=== PATIENT | male | born 1955 | race Caucasian/White ===

== ENCOUNTER 2017-11-10 10:31 | Emergency (ER) | payer BC, SELFPAY ==
[2017-11-10 10:33] VITALS: BP 190/94; PULSE 75; RESP 18; TEMP 35.9; O2SAT 98; BMI 26.4
--- NOTE | 2017-11-10 10:46 | CT_ITS ---
STUDY: CT BRAIN WITHOUT CONTRAST REASON FOR EXAM: Male, 62 years old. Headaches since yesterday. History of migraine headaches. RADIATION DOSAGE (If Supplied By Facility): CTDIvol = ( 44.99 ) mGy, DLP = ( 829.85 ) mGycm TECHNIQUE: Transaxial CT imaging of the brain was performed without administration of intravenous contrast material. Individualized dose optimization techniques were used for this CT. COMPARISON: None. FINDINGS: Normal soft tissue structures. Normal calvarium. Normal size ventricles and extra-axial spaces for the patient's age. Normal white matter tracts of the cerebral hemispheres. Normal basal ganglia and thalami. Normal brainstem. Normal cerebellum. There is no intracranial hemorrhage. There are no findings of an acute ischemic infarction. Partial opacification of the right maxillary sinus. Partial opacification of the ethmoid sinuses with nodular mucosal thickening of the anterior aspect of the left maxillary sinus. Mucosal thickening of the left sphenoid sinus. Mild mucosal thickening of the left frontal sinus. CT/Brain/Head without Contrast IMPRESSION: Sinusitis. Electronically Signed: Jose Carlos Escamilla MD at 12:14 EDT Tel [phone], Service support ,
--- NOTE | 2017-11-10 10:50 | ED.DCSUM_ITS ---
- ER Visit Summary Date of Service: 11/10/17 Chief Complaint: Headache History of Present Illness: The patient is a 62 M with rare migraines and hypertension. Patient states an ocular migraine yesterday. It improved in the afternoon he was able to go back to work. Today he has a headache in the bilateral temples down his neck with increased muscle tension. He had some slight dizziness this morning. He has had some minimal sinus congestion. No recent head trauma. Patient did take ibuprofen 4.5 hours ago and did take his blood pressure medicine just prior to arrival. Physical Examination: Vital signs significant for blood pressure of 190/94, otherwise unremarkable. Patient sitting upright in a well lit room. He is in no acute distress. Head neck examination was no sign. No significant sinus tenderness. TMs are clear bilaterally. He has no midline cervical tenderness but does have muscular tenderness in the bilateral trapezius muscles. Heart is regular rate and rhythm. Lung sounds are clear. Abdomen soft nontender. Neuro exam is normal. Test Results: CT head reveals evidence of sinusitis. Emergency Department Course and Treatment: Patient was treated Toradol, Reglan, Benadryl, and IV fluids. On repeat evaluation headache is nearly completely resolved. Patient complained of pain mostly in the muscles and more tension- like, as compared to a sinus induced headache. We will not treat with antibiotics at this time. Patient has a follow-up with him as scheduled with his primary care physician tomorrow. Treatment Plan: [] Disposition: Discharge Impression: Migraine, improved This note was generated with [employer] dictation software. It may contain incorrect words, spelling, and punctuation that were not noted in review of the chart prior to signing ED Disposition - Plan for ED Patient: Chief Complaint: Headache Referrals: Rachel Hannah DO [Primary Care Provider] -
[2017-11-10] MEDS: DiphenhydrAMINE 50 MG/ML Syringe 25 MG IV (11:04)
[2017-11-10] MEDS: Ketorolac 30 MG/ML Syringe IV (11:04)
[2017-11-10] MEDS: Metoclopramide 10 MG/2 ML Vial IV (11:04)
[2017-11-10] MEDS: 0.9% Normal Saline 1,000 ML 999 ML IV (11:10)
[2017-11-10 13:21] VITALS: BP 180/94; PULSE 66; RESP 16; O2SAT 97
--- NOTE | 2017-11-10 13:43 | ED.DEP ---
ED Disposition - Plan for ED Patient: Disposition: Home or Assisted Living Chief Complaint: Headache Instructions: ED Headache Migraine Referrals: Rachel Hannah DO [Primary Care Provider] - Keep Dutch appointment
[2017-11-10 14:04] VITALS: RESP 16
--- NOTE | 2017-11-10 14:04 | ED.RN ---
REVIEWED D/C INSTRUCTIONS, FOLLOW UP CARE, AND S/S THAT WOULD WARRANT A RETURN TO THE ED WITH PT. PT VERBALIZED AN UNDERSTANDING AND DENIES FURTHER QUESTIONS FOR THIS RN. PT SKIN P/W/D, RESP EVEN AND UNLABORED, PT A&O X 3, NO DISTRESS NOTED. PT AMBULATED OUT OF ED, GAIT STEADY.
== END 2017-11-10 14:06 | disposition home or self-care (01) ==
PROVIDERS: Emergency Provider Emergency Medicine; Family Provider Internal Medicine; PCP Internal Medicine
DX: G43.909 Migraine, unspecified, not intractable, without status migrainosus (principal); I10 Essential (primary) hypertension
CPT/HCPCS: 70450; 96361; 96374; 96375; 99283; J7030; J7050; A4216

== ENCOUNTER 2017-12-06 16:00 | Outpatient (RCR) | payer BC, SELFPAY ==
--- NOTE | 2017-11-23 12:54 | HP.PTEVAL ---
Patient's Visit Information SNOW ADORNO is a 62 year old M referred to Physical Therapy by Rachel Hannah with a diagnosis of muscular spasm, cervical pain. Date of Evaluation: 11/24/17 Physical Therapist: Jagdish Tobin - Visit Plan Frequency: 1-2x /Week Duration: 4 Weeks Plan: Promote increased range of motion and decreased pain through the use of modalities and dry needling. Add in thoracic extension, mid trap retraction, postural edcuation at work for ergonomics. - Subjective Subjective: Pt reports to physical therapy with muscle spasms and cervical pain. pt reports that cervical pain has been persistant for a couple months but has progressed within the last few weeks to a point where pt is experiencing headaches. pt suffered a headache which sent them to the ER. The ER physician said the pt's headaches were caused by tight muscles. pt performs stretches at home in an attempt to reduce symptoms. pt has described symptoms as pain in the upper trap. pt reports symptoms increase with over head movment and lifting heave objects. pt enjoys fitness and listing, pain has limited their ability to participate as desired. pt hopes to be able to return to lifting as prior to injury. - Pain Neck Pain Intensity (Out of 10): 6 Pain Intensity Range: 6, 10 - Objective POSTURE: mild forward head posture. PALPATION: pain upon palpation of the upper trap and the right levator scapule. NEURO: normal sensation. pt denies any numbness or tingling. ROM: Cervical: flexion - 0-50, extension - 0-40, lateral rotation R - 0-45, lateral rotation L - 0-40; UE: WFL. Decreased thoracic rotation and ext, mild increase in syptoms. MMT: Cervical: 5/5; UE: 5/5 - Special Tests C/S Radiculapathy - Left Spurlings: Negative C/S Radiculapathy - Right Spurlings: Negative - Goals Goal 1:: Pt to report 0/10 cervical pain at rest. Goal Time Frame: 2-4 Weeks Goal 2:: Pt to have improved cervical ROM by 25% in all ranges. Goal Time Frame: 2-4 Weeks Goal 3:: pt able to return to gym pain free Goal Time Frame: 2-4 Weeks Goal 4:: Pt. to complete all job activities without increase in symptoms. Goal Time Frame: 4-6 Weeks - Rehabilitation Potential Physical Therapy Diagnosis: Pt presents with symptoms associated with muscle spasm and cervical pain. pt's symptoms include diminished cervical range of motion, cervical pain with activity, and headaches, limiting pt's ability to participate in desired daily activities. pt would benefit from physical therapy to promot muscle relaxation and pain releif. Rehabilitation Potential: Excellent - Anticipated Interventions Patient/Client Instruction: Educate patient on: Condition, Plan of Care, Risk Factors, Benefits of Fitness Program For the Purpose of:: To decrease pain, To increase ROM, To improve muscle performance and motor function, To increase tolerance to activity/condition/position, To improve health of tissue, To foster healthy habits, To improve decision making, To facilitate caregiver knowledge, To improve self management, To prevent re-injury, To improve ability to perform tasks related to life management Therapeutic Exercise to Include: Strength training, Power training, Body mechanics, Postural training, Flexibilty training, Passive ROM, Active ROM For the Purpose of:: To decrease pain, To increase ROM, To improve muscle performance and motor function, To improve ability to perform ADL's, To improve health of tissue, To decrease soft tissue restriction, To increase flexibility/ROM Manual Therapy Techniques to Include: Trigger point massage, Massage, Mobilization, Manipulation, Passive ROM, Functional dry needling, Soft tissue mobilization For the Purpose of:: To decrease pain, To increase ROM, To decrease soft tissue restriction, To increase flexibility/ROM Cryotherapy (ice pack, ice massage): Yes Thermo therapy (hot pack): Yes Ultrasound (thermal/non thermal): Yes For the Purpose of:: To decrease pain, To increase ROM, To increase tolerance to activity/condition/position Thank you for the opportunity to evaluate your patient. For Medicare and Medicare HMO plans, please review the plan of care and approve it. It will need to be FAXED BACK to us at [phone] for Medicare purposes. Please let me know if there are questions or concerns regarding this plan of care. Physician Signature: Date:
--- NOTE | 2018-06-02 09:18 | HP.PTDCSUM ---
HP - PT D/C Summary It has been my pleasure to treat SNOW ADORNO under orders from Rachel Hannah DO, for the diagnosis of muscular spasm, cervical pain for a total of 6 visit(s). Discharge Date: 12/06/17 Please see the following information for a summary of their discharge status. - Subjective Subjective: Pt. reports I am doing great, I don't have any more pain. Pt. reports being HEP compliant and is 100% better overall. - Pain Neck Pain Intensity (Out of 10): 0 - Overall Improvement % Improvement: 100 - Objective Objective/Function: Pt. is no longer having any pain. He is pleased and is back to all recreational lifting without issues. Pt. will be DC from PT to HEP at this point in time. - Goals Goal 1:: Pt to report 0/10 cervical pain at rest. Goal Progress: Goal Met Goal 2:: Pt to have improved cervical ROM by 25% in all ranges. Goal Progress: Goal Met Goal 3:: pt able to return to gym pain free Goal Progress: Goal Met Goal 4:: Pt. to complete all job activities without increase in symptoms. - Plan Plan: DC to HEP at this point in time. - D/C Information Discharge Comments: Pt. was treated with postural strengthening, manual PT and DN. Pt. has met all of his goals and is no longer having pain. Pt. will be DC to HEP with focus on postural control and postural strengthening. If there are questions or concerns regarding this patient's physical therapy, please feel free to call me at [phone]. Thank you for the referral of this patient. Sincerely, Jagdish Tobin DPT
== END 2017-12-06 19:00 | disposition home or self-care (01) ==
LOC: PT 16:00
PROVIDERS: Family Provider Internal Medicine; PCP Internal Medicine; Visit Provider Internal Medicine
DX: M54.2 Cervicalgia (principal); M62.838 Other muscle spasm
CPT/HCPCS: 97110; 97140; 97161

== ENCOUNTER 2019-11-16 16:07 | Emergency (ER) | payer BC, SELFPAY ==
[2019-11-16 16:08] VITALS: BP 184/114; PULSE 94; RESP 17; TEMP 36.6; O2SAT 98; BMI 25.2
--- NOTE | 2019-11-16 16:37 | ED.DCSUM_ITS ---
History of Present Illness Chief Complaint: Lower Extremity Injury Informant: Patient Occurred: Today Mechanism/Context: Trip Onset: Today Context: Sudden Onset Quality of Pain: Aching Associated Symptoms: Negative for: Parasthesia, Weakness Narrative: Patient is a 64-year-old male with history of hypertension presenting with left ankle injury. Patient was in his basement when he tripped over a box. This caused him to twist his ankle and immediately had pain over the medial aspect of his ankle as well as swelling. Is not been able to walk on it since. This happened about an hour prior to arrival. He denies any prior injuries or issues with the ankle. He denies associated numbness or tingling. He is not on any blood thinners. No other complaints at this time. Past Medical History - Allergies and Home Meds Allergies/Adverse Reactions: Allergies clarithromycin [From Biaxin] Adverse Reaction (Verified 11/16/19 16:08) Nausea Primary Care Physician: Teri Taveras DO [STAFF PHYSICIAN] - Past Medical History: - - Hypertension Surgical History: noncontributory Lives: Spouse/ Significant Other Smoking Status: Never smoker Review of Systems General: Denies: Chills, Fever, Sweats Eyes: Denies: Visual changes - bilaterally, Diplopia ENT: Denies: Rhinorrhea, Sore throat Cardiovascular: Denies: Chest pain, Palpitations Respiratory: Denies: Dyspnea, Cough, Dyspnea on exertion Gastrointestinal: Denies: Abdominal pain, Nausea, Vomiting, Diarrhea, Melena, Hematochezia Genitourinary: Denies: Dysuria, Hematuria, Frequency Musculoskeletal: Reports: Swelling, Extremity Pain - Left ankle. Denies: Back pain Skin: Denies: Rash, Wounds Neurological: Denies: Headache, Weakness, Numbness Physical Exam Vital Signs/Narrative: Vital Signs Temp Pulse Resp BP Pulse Ox 11/16/19 16:08 97.9 F 94 17 184/114 H 98 Inital Vital Signs reviewed: Yes - Extremity Exam Left Knee: Negative for: Contusion, Deformity, Limited ROM Left Tib Fib: - - No Tenderness of the fibular head. Negative for: Contusion, Deformity, Limited ROM Left Ankle: Deformity, Edema, Limited ROM, - - Swelling with maximal tenderness over the medial malleolus. Achilles tendon appears to be intact.. Negative for: Contusion Left Toe: Negative for: Deformity, Edema, Hematoma, Limited ROM - No tenderness of the base of the fifth metatarsal General: Well nourished, Well developed Head: Normocephalic, Atraumatic Eyes: Perrl, EOMI ENT: No Trauma, Moist Mucous Membranes Neck: Nontender, Full ROM Cardiovascular: Regular rate, Regular rhythm, No murmurs Respiratory: No distress, CTA bilaterally, Chest nontender Abdomen: Soft, Nontender, Nondistended Skin: Normal color, No rash Neurological: Alert, Oriented x3, Cranial nerves II-XII grossly intact, Normal Strength, Normal Sensation Psychological: Normal affect Diagnostic/Tx/Re-eval Clinical Impression(s) from Imaging Studies Ankle X-Ray 11/16/19 16:45 IMPRESSION: Acute displaced fractures of the distal tibial and fibula. Electronically Signed: Alexis Cueva MD at 17:08 EDT , Service support , - Medical Decision Making Patient is evaluated for left ankle pain after a mechanical injury, tripping over a box. He has deformity. He is neuro vastly intact. X-ray interpreted by myself is consistent with tri-mal equivalent. Case is discussed with orthopedics on-call who recommends splinting and outpatient follow-up the patient will tolerate. Patient initially declined pain medication in the ER. Patient is then given IV fentanyl and Versed while the splint is placed. Patient is relaxed but oriented throughout. He is given oral Percocet prior to discharge. Patient is neurovascular intact after splint placement. Patient is given crutches per his request. Patient is counseled on signs and symptoms requiring return to the emergency room. Patient verbalizes agreement and understand this plan. Patient discharged home in stable and improved condition. Procedures - Lower Extremity Splints Lower Extremity Splint: Orthoglass, Stirrup - With posterior component Splint Fabrication: Fabricated Location: Left ED Disposition - Plan for ED Patient: Disposition: Home or Assisted Living Diagnosis: Closed fracture of distal end of left fibula and tibia Instructions: ED Ankle Fracture Prescriptions: Ibuprofen [Motrin] 600 mg PO Q6H PRN PRN #20 tab PRN Reason: Pain Score 1-10/10 Prescription Printed Oxycodone HCl/Acetaminophen [Percocet 5/325] 1 tab PO Q6H PRN PRN 3 Days #12 tab PRN Reason: Pain Prescription Printed Referrals: Teri Taveras DO [STAFF PHYSICIAN] - Additional Instructions: Do not put weight on your ankle. Call orthopedist on Tuesday to schedule follow- up appointments in the next few days. Alternate ibuprofen as well as Percocet for pain control. Return to emergency room with worsening pain or tingling. Do not get your splint wet.
--- NOTE | 2019-11-16 16:45 | RAD_ITS ---
STUDY: X-RAY - LEFT ANKLE REASON FOR EXAM: Male, 64 years old. left ankle pain after fall TECHNIQUE: 3 view(s) of the ankle. COMPARISON: None. FINDINGS: There is a transversely oriented fracture through the distal tibial plafond with mild lateral displacement of the proximal fracture fragment. . There is an obliquely oriented fracture through the distal third of the fibular shaft with mild separation of fracture fragments Normal medial and lateral malleoli. Normal tibiotalar articulation and ankle mortise. Normal visualized talus and calcaneus. The visualized subtalar, talonavicular, calcaneocuboid and tarsal articulations are normal. Bimalleolar soft tissue swelling is noted. RAD/Ankle min 3 Views IMPRESSION: Acute displaced fractures of the distal tibial and fibula. Electronically Signed: Alexis Cueva MD at 17:08 EDT , Service support ,
[2019-11-16] MEDS: fentaNYL 100 MCG/2 ML Ampul 50 MCG IV (18:53)
[2019-11-16] MEDS: Midazolam 5 MG/ML Syringe IV (18:53)
[2019-11-16 18:54] VITALS: BP 166/100; PULSE 85; RESP 20; O2SAT 98
[2019-11-16] MEDS: oxyCODONE 5 MG Tablet PO (19:34)
[2019-11-16 19:36] VITALS: BP 151/96; PULSE 84; RESP 16; O2SAT 96
--- NOTE | 2019-11-16 19:50 | ED.RN ---
IV out and wheelchair at al
== END 2019-11-16 19:51 | disposition home or self-care (01) ==
PROVIDERS: Emergency Provider Emergency Medicine; PCP Internal Medicine
DX: S82.402A Unspecified fracture of shaft of left fibula, initial encounter for closed fracture (principal); S82.202A Unspecified fracture of shaft of left tibia, initial encounter for closed fracture; W01.0XXA Fall on same level from slipping, tripping and stumbling without subsequent striking against object, initial encounter
CPT/HCPCS: 29515; 73610; 96374; 96375; 99285; J7030; A4216

== ENCOUNTER → 2019-11-20 15:05 | Outpatient (CLI) | payer BC, SELFPAY ==
[2019-11-16 16:08] VITALS: BMI 25.2
--- NOTE | 2019-11-20 15:08 | CT_ITS ---
STUDY: CT LEFT ANKLE WITHOUT CONTRAST REASON FOR EXAM: Evaluate displaced trimalleolar fracture from left ankle injury 11/16/2019. TECHNIQUE: Thin section transaxial imaging of the ankle was obtained, with sagittal and coronal reconstructed images. Individualized dose optimization techniques were used for this CT. COMPARISON: Radiographs 11/16/2019. FINDINGS: There is an obliquely oriented fracture of the distal fibular diaphysis above the level of the tibiotalar articulation with posterior displacement of the distal fragment by 0.28 cm (sagittal reconstructions 34-38). There is a fracture of the medial malleolus distracted 0.3 cm (coronal reconstructions 40-45). There is a posterior malleolar fracture displaced cephalad approximately 0.24 cm (sagittal reconstructions 22-30) with comminution (axial image 45). There is an osteochondral lesion of the medial talar dome (axial image 47; coronal reconstructions 43-45) measuring approximately 1.0 x 0.7 cm (AP x transverse). There is a small plantar calcaneal enthesophyte (sagittal reconstruction 27). Otherwise, unremarkable talus, calcaneus, navicular and cuboid tarsal bones. Normal subtalar, talonavicular and calcaneocuboid articulations. Normal navicular-cuneiform, cuneiform tarsal bones and intercuneiform articulations. Normal tarsometatarsal articulations and visualized metatarsi. There is soft tissue swelling. There is vascular calcification. CT/Extremity Lower without Contra IMPRESSION: Trimalleolar fracture. Osteochondral lesion of the medial talar dome. Electronically Signed: Cisco De Jesus MD at 9:58 EDT Tel , Service support ,
== END ==
PROVIDERS: PCP Internal Medicine; Referring Provider Podiatrist Foot & Ankle Surgery; Visit Provider Podiatrist Foot & Ankle Surgery
DX: S82.852A Displaced trimalleolar fracture of left lower leg, initial encounter for closed fracture (principal)
CPT/HCPCS: 73700

== ENCOUNTER 2019-11-29 09:31 | Day surgery (SDC) | payer BC, SELFPAY ==
--- NOTE | 2019-11-22 09:00 | EKG12_ITS ---
Test Reason : PRE OP Blood Pressure : / mmHG Vent. Rate : 078 BPM Atrial Rate : 078 BPM P-R Int : 154 ms QRS Dur : 082 ms QT Int : 376 ms P-R-T Axes : 047 056 057 degrees QTc Int : 428 ms Normal sinus rhythm Normal ECG No previous ECGs available Confirmed by DEBBY STERN, CLARENCE ([id number]), desk editor LOKESH ROGERS ([id number]) on 11/23/2019 9:33:11 AM Referred By: Zach Rogers Confirmed By:CLARENCE GUARDADO MD
--- NOTE | 2019-11-22 09:30 | RAD_ITS ---
STUDY: X-RAY CHEST REASON FOR EXAM: Male, 64 years old. trimalleolar fx ankle, pre op, no chest complaints TECHNIQUE: PA and lateral views of the chest. COMPARISON: None. FINDINGS: The lungs are clear and expanded. There is no demonstrated pleural abnormality. Normal size heart. Normal mediastinum and christian. Normal visualized pulmonary arteries. Normal visualized aortic arch and descending thoracic aorta. Normal visualized thoracic spine. Normal visualized ribs, clavicles, and shoulders. There is no demonstrated abnormality of the visualized soft tissue structures of the upper abdomen. RAD/Chest PA and Lateral IMPRESSION: Normal x-ray examination of the chest. Electronically Signed: Ravinder Garcia MD at 23:25 EDT , Service support ,
[2019-11-22 09:43] LABS: Hematocrit 41.3 % (40-54); Hemoglobin 13.8 g/dL (13.0-16.5); Mean Corp Hgb Conc 33.4 g/dL (32-36); Mean Corpuscular Hgb 31.9 pg (27.0-32.0); Mean Corpuscular Volume 95.6 fL (80-94); Mean Platelet Vol. 10.4 fl (6.2-12.0); Platelet Count 265 K/mm3 (150-450); RBC Distribution Width CV 11.9 % (11.6-14.6); RBC Distribution Width SD 41.2 fl (35.1-43.9); Red Blood Count 4.32 M/mm3 (4.6-6.2); White Blood Count 6.5 K/mm3 (4.4-11.0)
[2019-11-22 09:53] LABS: Partial Thromboplast Time 28.8 Seconds (24.1-36.2); Prothrombin Time (Protime)PT. 12.5 SECONDS (11.7-14.9)
[2019-11-22 10:12] LABS: Hemoglobin A1c 5.3 % (3.8-5.6)
[2019-11-22 10:18] LABS: Anion Gap 5 (5-15); BUN 20 mg/dL (7-18); BUN/Creat Ratio 19.2 RATIO (10-20); Calcium,Total 9.2 mg/dL (8.5-10.1); Chloride 107 mmol/L (98-107); Creatinine, Serum 1.04 mg/dL (0.70-1.30); EST Glomerular Filtration Rate 77 mL/min (>60); Est Glom Filt Rate - Afr Amer 93 mL/min (>60); Glucose 114 mg/dL (74-106); Sodium Level 139 mmol/L (136-145)
[2019-11-29] VITALS (7 sets, daily range): BP systolic 136–153; BP diastolic 78–95; PULSE 67–84; RESP 14–16; TEMP 36.3–37.2; O2SAT 94–100; BMI 26.4
[2019-11-29] MEDS: Lactated Ringers 1,000 ML 100 ML IV ×2 (10:12→16:51)
[2019-11-29] MEDS: Cefazolin 2 GM in 0.9% Normal Saline 100 ML IV (12:20)
--- NOTE | 2019-11-29 13:20 | RAD_ITS ---
STUDY: X-RAY - LEFT ANKLE REASON FOR EXAM: Male, 64 years old. ORIF of trimalleolar left ankle fracture. -- -- -- fluoro time - 347.6 seconds -- dose 9.18mgy TECHNIQUE: 17 fluoroscopic view(s) of the ankle. 347.6 seconds of fluoroscopy time. COMPARISON: Prior right ankle radiographs of 11/16/2019 FINDINGS: At the completion of the intraoperative procedure, the distal fibular fracture is realignment in normal anatomic alignment with a lateral side compression plate and one in the dependent lag screw. The medial malleolar fracture is repaired to anatomic alignment with 2 malleolar screws. There is fixation of the distal tibiofibular synchondrosis. The posterior malleolar fracture is anatomically aligned with inner osseous stabilization from posterior to anterior tibia. Normal ankle alignment. Normal postoperative soft tissue changes. RAD/Ankle min 3 Views IMPRESSION: Anatomic alignment and stabilization of the trimalleolar fracture of the ankle with hardware as described above. No untoward bone, joint or hardware findings. Electronically Signed: Briana Ren MD at 21:56 EDT , Service support ,
--- NOTE | 2019-11-29 16:19 | DCINST_ITS ---
Discharge Diet: No Restrictions Discharge Activity: May Not Drive, May Not Shower, Use Walker, Use Crutches Weight Bearing Status: No weight bearing Keep extremity elevated above heart level: Left Leg Additional Activity Instructions:: 1. Keep dressing to left leg clean, dry, intact. Do not get dressing wet. Do not remove dressing. If get dressing wet, call office for further instruction. 2. Ice around left knee 30 minutes every while awake for next 7 days. 3. Elevate left foot above level of heart as often as possible until further instructed. #. 4. Do not stand/walk/place weight on left foot. Use crutches/walker/knee scooter for assistance. #5. Begin taking doxycycline (antibiotic) tomorrow, November 30, 2019 twice a day as instructed. 6. Begin taking aspirin 81 mg twice a day tomorrow, November 30, 2019. 7. Begin taking Percocet (pain medication, oxycodone/acetaminophen) today, November 29, 2019 as needed. 8. May supplement Percocet with Tylenol (acetaminophen). Do not take more than 3000 mg of Tylenol in a 24-hour period. The Percocet does contain Tylenol. 9. Follow-up in 1 week as previously scheduled with Dr. Rogers. Call your doctor if your incision/area has: Continuous Slow Oozing, Sudden Inc reased Bleeding, Increased Pain/ Swelling Call your doctor if you observe: Fever of 101 or Higher, Coldness, Increased Pain, Inability to have a bowel movement, Shortness of breath, Chest pain, Increased palpitations (irregular heartbeat), Calf discomfort, Uncontrolled pain Cleanse incision/area with: Keep Dressing Clean & Dry Allergies/Adverse Reactions: Allergies clarithromycin [From Biaxin] Adverse Reaction (Verified 11/21/19 08:26) Nausea Medications to take at Discharge Metoprolol Succinate 50 mg PO DAILY 11/10/17 Triamcinolone Acetonide [Nasacort] 1 spray NS DAILY 11/10/17 Ascorbic Acid [Vitamin C] 1,000 mg PO DAILY 11/16/19 Ibuprofen [Motrin] 600 mg PO Q6H PRN PRN #20 tab 11/16/19 Multivitamin 1 ea PO DAILY 11/16/19 Vitamin B Complex 1 ea PO DAILY 11/16/19 Primary Care Physician: Rachel Hannah DO [Primary Care Provider] - Test Results: Test results from this visit will be discussed in further detail at your follow- up appointment, if applicable. Please Follow Up With: Zach Rogers DPM When: in 1 week as previously scheduled Proposed Discharge Date: 11/29/19
--- NOTE | 2019-11-29 16:22 | OP.PCM_ITS ---
Problem List (1) Ankle syndesmosis disruption Status: Acute Qualifiers: Encounter type: initial encounter Laterality: left Qualified Code(s): S93.432A - Sprain of tibiofibular ligament of left ankle, initial encounter (2) Osteochondral defect of ankle Status: Acute (3) Fracture of ankle, trimalleolar, left, closed Status: Acute Qualifiers: Encounter type: initial encounter Qualified Code(s): S82.852A - Displaced trimalleolar fracture of left lower leg, initial encounter for closed fracture Report of Operation Date of Procedure: 11/29/19 Pre-Operative Diagnosis: 1. Left ankle trimalleolar fracture, closed, displaced. 2. Left ankle joint dislocation. 3. Left ankle syndesmotic disruption. 4. Left ankle osteochondral defect Post-Operative Diagnosis: Same as preoperative Surgery/Procedure Performed:: 1. Open reduction with internal fixation of left ankle trimalleolar fracture. 2. Open reduction with internal fixation of left ankle syndesmosis. 3. Left ankle joint arthroscopy. 4. Left talus repair of osteochondral defect Description of Surgical Findings:: Consistent with diagnosis. Reduction of deformity achieved and held with finance accounting internship al fixation. pattern drum maker: Jesika Chong NP Type of Anesthesia:: General/Regional - With a popliteal and saphenous block given to the left lower extremity preoperatively Anesthesiologist: Cristi Buchanan Special Medications: 2 grams of ancef given pre-operatively Specimen's removed: None Drains: None Estimated Blood Loss (mL): 75mL Description of Procedure: Hemostasis: Pneumatic thigh tourniquet placed at the level of left thigh at 275 mmHg for 21 minutes. This was then deflated for a period of 14 minutes. This was then reinflated for period of 120 minutes. Estimated blood loss: 75 mL Materials: #1. Arthrex tight rope x2. 2. Arthrex 8 hole lateral fibular recon plate. 3. Arthrex 3.5 x 14 mm cortical screw x3. 4. Arthrex 3.5 x 22 mm cortical screw. 5. Arthrex 3.5 x 14 mm locking screw x2. 6. Arthrex 4.0 x 35 mm cannulated screw x2. 7. Size 0 Vicryl. 8. Size 2-0 Vicryl. 9. Size 3-0 Vicryl. 10. Size 3-0 nylon Injectables: None Complications: None Condition: Stable Indications: Patient is a 64-year-old male with past medical history of high blood pressure and Crohn's disease, who suffered an injury to his left ankle on November 16, 2019. After verbal questioning, patient states that he was at home when the injury occurred. He was in his basement, and tripped over boxes in his basement. He felt awkwardly on his left ankle. He felt immediate pain in his left ankle, and did notice a deformity. He was unable to bear weight on his left ankle at that time. Patient presented to the emergency department for further evaluation. At that time, x-rays were taken, revealing a left ankle trimalleolar fracture. Patient was then reduced, placed in a posterior splint, and was sent to me for further evaluation. Patient initially saw me on November 19, 2019. At that time, after reviewing the x-rays, I discussed with the patient that he did have what is called a left ankle trimalleolar fracture. I discussed these terms in detail at that time. I discussed conservative versus surgical intervention. Conservative would include nonweightbearing and a below the knee cast. Surgical intervention would include an open reduction with internal fixation of the left ankle trimalleolar fracture, open reduction with internal fixation of the left syndesmosis, and the remaining procedures would be determined based off further preoperative imaging. Due to the activity level of the patient and the nature of the injury, I recommended surgical intervention. I did discuss the risks and benefits of surgical intervention at that time. Patient was agreeable to proceed with surgical intervention. A preoperative CT scan was ordered of the left ankle along with preoperative blood work, EKG, and chest xray. Furthermore, medical clearance was sent to his primary care physician, which was obtained.. I did discuss with the patient at that time that he has significant swelling of his left ankle, and I recommend a compressive dressing of the left lower extremity to aid in the reduction of edema before surgical intervention. Patient then returned to my office on November 26, 2019. At that time, a significant reduction in edema was noted. Furthermore, a CT scan revealed an osteochondral defect of his left ankle. I then discussed with the patient that the surgical intervention would include an open reduction with internal fixation of the left ankle trimalleolar fracture, open reduction with internal fixation of the left ankle syndesmosis, a left ankle joint arthroscopy, and repair of osteochondral defect. I discussed all these terms in detail. I discussed the risks, benefits, possible outcomes, possible complications of the procedure. These include but not limited to delayed or nonhealing wounds, delayed or nonhealing bone, DVT, infection, decr eased function of limb, continued pain, damage to surrounding structures, loss of limb, loss of life. All the patient questions were answered to his satisfaction and all of his concerns were addressed. No guarantees were made as to the outcome of the procedure. Patient understood all aspects of the procedure, and consent was then signed by the patient. Patient was agreeable to proceed with surgical intervention at that time. Surgical intervention was planned for today, November 29, 2019. Operative report: Before the patient brought to the operating room, I discussed once again the risks, benefits, possible outcomes, possible complications of the procedure. These include but not limited to delayed or nonhealing wounds, delayed or nonhealing bone, DVT, infection, decreased function of limb, continued pain, damage to surrounding structures, loss of limb, loss of life. All the patient questions were answered to his satisfaction and all of his concerns were addressed. No guarantees were made as to the outcome of the procedure. Patient understood all aspects of the procedure, and was agreeable to proceed. Before the patient was brought to the operating room, the anesthesiologist administered a popliteal and saphenous block to the left lower extremity. Patient was then brought to the operating room placed on the operating table in supine position. After timeout, general anesthesia was obtained, and anesthesia to control the airway and IV access. Care was taken make sure that all pressure points were well-padded. Next, a pneumatic thigh tourniquet is placed to the level of the left thigh. Next, the left lower extremity was then placed in the leg armas with the posterior thigh against the leg armas, and the leg held in a less than 90 degree position. This was optimal positioning for the ankle joint arthroscopy. Care was taken make sure that adequate padding was placed on the leg armas. The left foot, ankle, leg were then scrubbed, prepped, draped in the usual sterile manner. Elevation of the left lower extremity was followed by exsanguination via Esmarch and inflation the pneumatic thigh tourniquet to 275 mmHg. Attention was then directed to the anterior aspect of the left ankle. At this time, the tibialis anterior tendon was palpated and marked. The ankle joint line was palpated and marked as well. At this time, approximately 40 mL of normal sterile saline was injected into the ankle joint. Immediate insufflation of the ankle joint was noted. Next, #15 blade was used to perform a stab incision just medial to the tibialis anterior tendon at the level of the ankle joint line. Blunt dissection was continued down deep to the level of the ankle joint capsule. Next, the trocar, placed into the cannula, was placed into the surgical site. The trocar was then used to penetrate the ankle joint. Immediate backflow was then noted. At this time, the arthroscope was then placed into the medial portal. Visual inspection was then performed of the ankle joint. Synovitic tissue was noted. Furthermore, the syndesmosis was noted to be disrupted. The osteochondral defect was then found on the medial shoulder of the talar body. At this time, transillumination was performed to determine the level of the anterior lateral portal. A stab incision was made at the level of the anterior lateral portal at the level of the ankle joint and an area void of neurovascular structures Blunt dissection was continued down deep to the level of the ankle joint, which was then bluntly penetrated. At this time, the arthroscopic shaver was placed into the anterior lateral portal. After triangulation was performed, arthroscopic debridement was performed of the ankle joint synovitic tissue. Once adequate debridement was performed, the shaver and the camera were removed from their portals, and the camera was inserted into the anterior lateral portal. At this time, visual inspection was then performed of the osteochondral defect in question. At this time, the micro-pick was placed into the anterior medial portal. The posterior aspect of the osteochondral defect was noted to be fragmented, while the remaining osteochondral defect noted to be intact. A micro-pick along with a curette was used to debride the unstable portion of the osteochondral defect. The micro- pick was used to assist in the formation of fibrocartilage. Once adequate debridement and picking was performed of this, visual inspection was then performed of the ankle joint once again. A decrease in the synovitic tissue was noted. Furthermore, no other osteochondral defects were noted. At this time, the camera and all tools were removed from the portals. The pneumatic thigh tourniquet was released at this time and a prompt hyperemic response was noted to the entirety of the left lower extremity. The anterior lateral surgical site was reapproximated and coapted utilizing 3-0 nylon in a horizontal mattress fashion. The anterior medial surgical site was going to be used to fix the posterior malleolus fracture, and was left open. At this time, attention was then directed the lateral aspect of the left ankle. Radiograph evaluation was used to determine the distal tip of the lateral malleolus, level of the fibular fracture, and proximal aspect of the lateral one third of the fibular shaft. Furthermore, radiograph evaluation was used to walker the medial malleolus fracture at the distal tip of the medial malleolus. At this time, the left lower extremity was elevated and exsanguinated via Esmarch and inflation pneumatic thigh tourniquet was performed once again to 275 mmHg. Attention was then directed back to the lateral aspect the left ankle. At this time, #15 blade was used to perform a linear longitudinal incision starting at the lateral aspect of the central portion of the lateral malleolus extending proximally to the lateral aspect of the distal one third of the fibular shaft. This incision was approximately 9 cm in length. This incision was deepened utilizing sharp and blunt dissection. Care was taken retract all vital neural and vascular structures. All bleeders were cauterized and ligated as necessary. Next, a linear periosteal incision was made in line with the original skin incision. The periosteal capsular structures then reflected anteriorly and posteriorly, thus exposing the fibular fracture at the operative site. Next, curettes were used to remove any fibrous tissue contained within the fibular fracture. The surgical site was irrigated copious amounts of normal sterile saline. At this time, the fibular fracture was reduced and held via temporary fixation. Radiograph evaluation was then performed. The fibula was noted to be out the length at this time, the fibular fracture was noted to be reduced from preoperative assessment. At this time, an Arthrex 3.5 cortical screw was placed from anterior superior to posterior inferior as perpendicular to the fracture fragment as possible. This was inserted in standard AO fixation. Of note during insertion of the screw was adequate compression of the fracture fragment. Furthermore, no shifting any of the fracture occurred during insertion of the screw. Once the screw was fully inserted, all temporary fixation was then removed. Radiograph evaluation was then performed. The screws noted to hold the fibular fracture in the corrected reduced position. Evidence of comminution was noted at the proximal aspect of the fibular fracture, but was not a part of the main fracture. This was left alone to adhere on its own. It was determined that fixation would not be needed for this. At this time, the Arthrex 8 hole reconstruction plate was placed over the lateral aspect of the fibula and held via temporary fixation. Radiograph evaluation was then performed. The plate was noted to be in adequate position. This was then held to the lateral aspect of the fibula utilizing a mixture of nonlocking and locking screws. Of note during insertion of the screws was adequate compression of the plate to the bone. Furthermore, no shifting any of the fracture occurred during insertion the screws. One hole was left open intentionally at the distal portion of the recon plate for the syndesmosis fixation. Once the screws were fully inserted, radiograph evaluation was then performed. The fibula plate and fixation was noted to hold the fibula in the corrected reduced position. At this time, attention was then directed to the medial malleolus of the left ankle. A curvilinear incision was made starting at the midportion of the medial malleolus extending distally and anteriorly to the distal tip of the medial malleolus. This incision was deepened utilizing sharp and blunt dissection. Care was taken retract all vital neural and vascular structures. All bleeders were cauterized and ligated as necessary. Next, a similar incision to that made in the skin was was placed into the deltoid ligament. The deltoid ligament was then reflected anteriorly and posteriorly, thus exposing the fracture medial malleolus of the operative site. At this time, reduction of the medial malleolar fracture was performed and held via temporary fixation. This was difficult to reduce due to the small size of the fragment. Once adequate reduction was had, this was held in place utilizing the 4.0 x 35 mm cancellus screws from Arthrex. These were inserted parallel to each other from the inferior aspect of the medial malleolus extending superiorly into the body of the tibia. Care was taken make sure that the screws were well contained within the medial malleolus. Once the screws were inserted, radiograph evaluation was then performed. The medial malleolus was noted to be reduced from preoperative assessment, and the ankle joint mortise on the medial side appeared in line. Furthermore, the fibula was noted to be out the length and held in the corrected reduced position. At this time, attention was then directed back to the lateral aspect of the left ankle. The cotton and hook test were performed of the fibula under live radiographic evaluation. It was noted that there was a widening and instability of the syndesmosis. It was deemed that the syndesmosis would need to be fixated. Attention was then directed to the hole left open intentionally for the syndesmosis, which correlated approximately 15 mm proximal to the ankle joint line. At this time, drilling was performed in standard fashion from lateral to medial through this plate and then a 30 degree angle from inferior lateral to superior medial. This was used to re-create the syndesmosis. Once adequate drilling was had, the tight rope was inserted in standard fixation with the foot held in a forced dorsiflexed position and the syndesmosis reduced. Once tightening of the tight rope was performed, radiograph evaluation was then performed. The tight rope was noted to be well contained within the tibia and the fibula. Furthermore, there was a reduction in the syndesmosis noted when compared to preoperative assessment. Attention was then directed to back to the anterior aspect of the left ankle near the anterior medial portal. At this time, this incision was carried superiorly approximately 5 mm. Blunt dissection was continued down deep to the level of the tibia. Care was taken make sure that the tibialis anterior tendon was retracted the entire time and kept within the sheath. Once adequate dissection was had, radiograph evaluation was used to reduce the posterior malleolus fracture and assist in the positioning of the K wire for the Arthrex tight rope from anterior to posterior, and at the posterior malleolus fracture. Once adequate positioning was had of this K wire and reduction of the posterior malleolus fracture was performed, drilling was performed in standard fashion from anterior to posterior, and the tight rope was inserted from anterior to posterior. The tight rope was tightened in standard fashion. Of note at this time while the tight rope was tightened was the reduction of the posterior malleolus fracture. Radiograph evaluation was then performed. The tight rope was noted to be well contained within the tibia, and did not penetrate the ankle joint. Furthermore, live radiographic evaluation determined that the tight rope did not interfere with the ankle joint motion. Adequate reduction was performed of the posterior malleolus with this tight rope at the time. Radiograph evaluation was then performed once again. The fibula was noted to be reduced when compared to preoperative assessment and the fibula was noted to be out the length at this time. The medial malleolus fracture was noted to be reduced from preoperative assessment. The ankle joint mortise was noted to be intact at this time. Reduction of the tibiofibular overlap was noted when compared to preoperative assessment. Furthermore, a reduction of the posterior malleolus fracture was noted when compared to preoperative assessment. All hardware was well contained within the respective surgical sites and the ankle joint motion was noted to be free and uninhibited. Each surgical site was then irrigated with copious amounts of normal sterile saline. Pneumatic thigh tourniquet was then released and a prompt hyperemic response noted to the entirety of the left lower extremity. For the lateral surgical site, the periosteal capsular structures were reapproximated coapted utilizing size 0 Vicryl. The subcutaneous tissue was reapproximated coapted utilizing size 2-0 Vicryl and 3-0 Vicryl. The skin was reapproximated coapted utilizing size 3-0 nylon a simple interrupted and horizontal mattress fashion. For the medial surgical site, the deltoid ligament was reapproximated coapted utilizing size 0 Vicryl. The subcutaneous tissue was reapproximated coapted utilizing size 3-0 Vicryl. The skin was reapproximated coapted utilizing size 3-0 nylon in a simple interrupted and horizontal mattress fashion. For the anterior medial surgical site, the subcutaneous tissues were reapproximated coapted utilizing size 0 Vicryl and 3-0 Vicryl. The skin was reapproximated coapted utilizing size 3-0 nylon in a simple interrupted and horizontal mattress fashion. Each surgical site was then dressed with Betadine soaked gauze, and a dry sterile dressing setting of 4 x 4 gauze, ABD pads, wrapped with Kerlix. The left foot and ankle were then wrapped with an Jose bandage. Next, a stockinette was placed over the left lower extremity. Cast padding was wrapped in the metatarsal heads extending proximally to a level just distal to the tibial tuberosity. A posterior splint was fashioned to the left lower extremity and was adhered to the left lower extremity utilizing Jose bandages. Care was taken make sure that the foot and ankle held in neutral position as a posterior splint dried. Neurovascular status was assessed at the end the application and deemed intact to left lower extremity. Patient tolerated anesthesia and procedure well and was transported to the PACU with vital signs stable neurovascular status intact to left lower extremity. After period of postoperative monitoring, patient will be discharged home with written and oral instructions for wound care and follow-up. The surgical services director, the nurse practitioner, was utilized at the entire procedure. She help with patient positioning, holding of limb, holding retractors. She helped with exposure throughout. She helped with bandage application, and cast application. Without surgical services director, surgical time would have been increased and surgical outcome could have been less optimal. - Complications None - Admit VTE Documentation VTE Present on Admission: No VTE Mechan Device Prophylaxis: SCD's VTE Pharm Prophylaxis ordered?: Yes
--- NOTE | 2019-11-29 16:40 | RAD_ITS ---
STUDY: X-RAY - LEFT ANKLE REASON FOR EXAM: Male, 64 years old. POST OP LEFT ANKLE TECHNIQUE: view(s) of the ankle. COMPARISON: None. FINDINGS: There is a side plate cortical screws transfixing the distal fibula. There are 2 cortical screws transfixing the medial malleolus and a ligamentous tack demonstrated in the distal tibia. There is a persistent fracture line in the medial malleolus. The cortical screws may be in part above above the visualized defect. RAD/Ankle min 3 Views IMPRESSION: Status post open reduction internal fixation of the left ankle. Electronically Signed: Whitney Graham MD at 7:00 EDT Tel , Service support ,
== END 2019-11-29 18:02 | disposition home or self-care (01) ==
LOC: SDC 09:31 → AC 09:33
PROVIDERS: Anesthesiology; PCP Internal Medicine; Referring Provider Podiatrist Foot & Ankle Surgery; Visit Provider Podiatrist Foot & Ankle Surgery
DX: S82.852A Displaced trimalleolar fracture of left lower leg, initial encounter for closed fracture (principal); W18.09XA Striking against other object with subsequent fall, initial encounter; Y93.9 Activity, unspecified; Y92.008 Other place in unspecified non-institutional (private) residence as the place of occurrence of the external cause; Y99.9 Unspecified external cause status; M21.962 Unspecified acquired deformity of left lower leg; Z11.59 Encounter for screening for other viral diseases; S93.492A Sprain of other ligament of left ankle, initial encounter; K50.90 Crohn's disease, unspecified, without complications; Z79.899 Other long term (current) drug therapy; I10 Essential (primary) hypertension; F17.220 Nicotine dependence, chewing tobacco, uncomplicated
CPT/HCPCS: 27822; 27829; 36415; 71046; 73610; 76000; 80048; 83036; 85027; 85610; 85730; 87635; 93005; C1713; C9803; J7120; J2405; U0003

== ENCOUNTER → 2024-05-25 | Outpatient (CLI) | payer BC, SELFPAY ==
--- NOTE | 2024-05-25 18:50 | CT_ITS ---
PROCEDURE: SINUS/FACIAL BONE REASON FOR EXAM: CHRONIC SINUSITUS TECHNIQUE: CT of the paranasal sinuses without contrast. Coronal and Sagittal reconstruction series were provided. One or more dose reduction techniques were used (e.g., Automated exposure control, adjustment of the mA and/or kV according to patient size, use of iterative reconstruction technique). COMPARISON: None. FINDINGS: Frontal: Mucosal thickening in the left frontal sinus mild mucosal thickening in the right frontal sinus. Ethmoid: Mucosal thickening - scattered ethmoid air cells Sphenoid: Scattered mucosal thickening Maxillary: Scattered mucosal thickening and 2 or more mucous retention cyst Turbinates: Mucous retention cyst in the posterior right turbinates Nasal Septum: Unremarkable Mastoids/Middle Ears: Unremarkable CT/Sinus/Facial Bone IMPRESSION: Scattered bilateral mild sinus disease as detailed above Reading [facility]
== END | disposition home or self-care (01) ==
PROVIDERS: PCP Internal Medicine; Referring Provider Otolaryngology; Visit Provider Otolaryngology
DX: J32.9 Chronic sinusitis, unspecified (principal); J33.0 Polyp of nasal cavity
CPT/HCPCS: 70486

== ENCOUNTER → 2024-06-13 | Outpatient (CLI) | payer BC, SELFPAY ==
--- NOTE | 2024-06-13 08:24 | EKG12_ITS ---
Test Reason : CA OP Blood Pressure : */* mmHG Vent. Rate : 82 BPM Atrial Rate : 82 BPM P-R Int : 158 ms QRS Dur : 82 ms QT Int : 374 ms P-R-T Axes : 57 67 59 degrees QTcB Int : 436 ms Normal sinus rhythm Normal ECG Confirmed by Jason Nolen ([id number]), acquisitions editor KEYUR OLIVA ([id number]) on 06/13/2024 10:16:06 AM Referred By: Kobi Momin Confirmed By: Jason Nolen
== END | disposition home or self-care (01) ==
LOC: PSN 08:23
PROVIDERS: PCP Internal Medicine; Referring Provider Otolaryngology; Visit Provider Otolaryngology
DX: Z01.810 Encounter for preprocedural cardiovascular examination (principal); Z01.812 Encounter for preprocedural laboratory examination
CPT/HCPCS: 93005

== ENCOUNTER → 2024-09-17 | Outpatient (CLI) | payer BC, SELFPAY ==
[2024-09-17 14:47] LABS: Hematocrit 42.7 % (40-54); Hemoglobin 14.7 g/dL (13.0-16.5); Mean Corp Hgb Conc 34.4 g/dL (32-36); Mean Corpuscular Volume 93.2 fL (80-94); Mean Platelet Vol. 10.9 fl (6.2-12.0); Platelet Count 252 K/mm3 (150-450); RBC Distribution Width CV 12.7 % (11.6-14.6); RBC Distribution Width SD 43.4 fl (35.1-43.9); Red Blood Count 4.58 M/mm3 (4.6-6.2); White Blood Count 7.1 K/mm3 (4.4-11.0)
[2024-09-17 15:11] LABS: Anion Gap 13 (5-15); BUN 10 mg/dL (4-19); BUN/Creat Ratio 12.8 RATIO (10-20); Calcium,Total 8.9 mg/dL (7.6-11.0); Carbon Dioxide 20.4 mmol/L (21.0-32.0); Chloride 102 mmol/L (98-108); Glucose 97 mg/dL (70-99); Potassium 4.1 mmol/L (3.3-5.1)
== END | disposition home or self-care (01) ==
LOC: LAB 13:14
PROVIDERS: PCP Internal Medicine; Referring Provider Otolaryngology; Visit Provider Otolaryngology
DX: Z01.812 Encounter for preprocedural laboratory examination (principal); Z01.818 Encounter for other preprocedural examination
CPT/HCPCS: 36415; 80048; 85027

== ENCOUNTER → 2024-09-24 | Outpatient (CLI) | payer BC, SELFPAY ==
--- NOTE | 2024-09-24 13:00 | ETH_PTH ---
PATIENT: SNOW ADORNO LOC: [facility] U#:[id number] AGE/SX: 69/M ROOM: RE09/24/[address]: Dr. Kobi Momin MD : [id number] BED: DIS: 09/24/2024 SPEC #: [id number] RECD: 09/24/24 15:32 STATUS: JAYNE LACEY #: [id number] ARLENE: 09/24/24 13:[address]: Kobi Momin DEPT: SURGICAL PATHOLOGY RECD BY: Gen Hall ENTERED: 09/25/24 08:53 SP TYPE: ETH TISS OTHR DR: Dr. Rachel Hannah DO Tissues: A - Ethmoid sinus, NOS B - Ethmoid sinus, NOS C - Ethmoid sinus, NOS Procedures: Surgery Specimen Level IV HEADER OPERATION: Septoplasty, bilateral total ethmoidectomy, bilateral maxillary antrostomy PRE-OP DIAGNOSIS: Polyp of nasal cavity, other chronic sinusitis, nasal congestion, deviated nasal septum TISSUE SUBMITTED: A- Septum, B- Left nasal sinus contents, C- Right nasal sinus contents MICROSCOPIC DIAGNOSIS A. Septum, deviated nasal septum, septoplasty: - Hyaline cartilage, benign. - Trabecular bone with reactive changes. B. Sinus contents, left, polyp of nasal cavity, ethmoidectomy, maxillary antrostomy: - Polypoid fragments of sinonasal mucosa consistent with inflammatory polyp. - Fragments of trabecular bone. C. Sinus contents, right, polyp of nasal cavity, ethmoidectomy, maxillary antrostomy: - Polypoid fragments of sinonasal mucosa consistent with inflammatory polyp. - Fragments of trabecular bone. MICROSCOPIC DESCRIPTION Slides are reviewed. GROSS DESCRIPTION Received in 3 formalin containers labeled with the patient's name and date of . Designated as: A. Septum is a 4.2 x 2.5 x 0.3 cm aggregate of lemus-white fibrocartilaginous tissue fragments and flecks of apparent bone. [employer] sections are submitted in 1 cassette, following decalcification. B. Left sinus content is a 2.5 x 1.8 x 0.3 cm aggregate of lemus-pink to red tissue fragments and flecks of apparent bone. Entirely submitted in 1 cassette, following decalcification. C. Right sinus content is a 3.0 x 2.6 x 0.4 cm aggregate of lemus-pink to red tissue fragments and flecks of apparent bone. Entirely submitted in 2 cassettes, following decalcification. AR 09/25/2024 CPT:[id number]
== END | disposition home or self-care (01) ==
LOC: LABSPEC 16:00
PROVIDERS: PCP Internal Medicine; Referring Provider Otolaryngology; Visit Provider Otolaryngology
DX: J33.0 Polyp of nasal cavity (principal); J32.8 Other chronic sinusitis; R09.81 Nasal congestion; J34.2 Deviated nasal septum
CPT/HCPCS: 88305

== ENCOUNTER → 2024-12-26 | Outpatient (CLI) | payer MEDICARE, SELFPAY | END | disposition home or self-care (01) | PROVIDERS: PCP Internal Medicine; Referring Provider Otolaryngology; Visit Provider Otolaryngology | DX: J01.90 Acute sinusitis, unspecified (principal) | CPT/HCPCS: 87070; 87077; 87205 ==

== ENCOUNTER → 2025-01-18 | Outpatient (CLI) | payer MEDICARE, SELFPAY ==
[2025-01-23 09:09] LABS: Calprotectin, Stool 4680 ug/g (0-120)
== END | disposition home or self-care (01) ==
PROVIDERS: PCP Internal Medicine; Referring Provider Internal Medicine Gastroenterology; Visit Provider Internal Medicine Gastroenterology
DX: K51.818 Other ulcerative colitis with other complication (principal)
CPT/HCPCS: 83993; 87493; 87506